=== PATIENT | female | born 1930 | race Caucasian/White ===

== ENCOUNTER 2016-11-21 16:27 | Inpatient (IN) | payer OTHER, BC ==
[~2016-11-21] VITALS: Ht 170.2 cm; Wt 62.7 kg
[~2016-11-21 16:27] MED LIST: ACETAMINOPHEN325 M3 PO; ASPIR 8181 M1 PO; ASPIR-LOW81 MG PO; CALCIUM 600 +1 EAC2 PO; CARVEDILOL12.5 MG PO; CEFTIN500 MG PO; CENTRAL VITE F1 EACH PO; CENTRUM SILVER1 EAC3 PO; CERTAVITE SR W1 EACH PO; CIPROFLOXACIN500 M1 PO; COLACE50 MG PO; COREG12.5 M1 PO; COUMADIN1 MG PO; COUMADIN3 MG PO; DOCU LIQUI50 MG/5 ML PO; DULCOLAX10 MG PR; ENALAPRIL MALEA10 MG PO; FUROSEMIDE40 MG PO; IRON325 MG PO; KLOR-CON 1010 ME1 PO; KLOR-CON M2020 MEQ PO; KLOR-CON20 MEQ PO; LASIX20 MG PO; LEVOTHYROXINE112 MCG PO; LEVOTHYROXINE88 MCG PO; LIDOCAINE700 MG TD; MILK OF MAGNESI10 ML PO; POTASSIUM CHLO20 ME1 PO; PRAVASTATIN SOD40 MG PO; SYNTHROID112 MCG PO; TRAMADOL HCL50 MG PO; VASOTEC10 MG PO; WARFARIN SODIUM1 MG PO; WARFARIN SODIUM2 MG PO; WARFARIN SODIUM3 MG PO; WARFARIN SODIUM4 MG PO; ZYLOPRIM100 MG PO
[2016-11-21 17:47] LABS: CHLORIDE 102 mEq/L (99-109); MAGNESIUM 2.5 mg/dL (1.3-2.7); POTASSIUM 4.6 mEq/L (3.7-5.4); SODIUM 141 mEq/L (136-147)
[2016-11-21 17:49] LABS: GLUCOSE 128 mg/dL (70-99)
[2016-11-21 17:50] LABS: ANION GAP 14 MEQ/L (2-14); EOSINOPHIL (%) 0 % (0-5); IMMATURE GRANULOCYTE (%) 0.6 % (0.0-0.7); IMMATURE GRANULOCYTE COUNT 0.1 K/uL; MCH 31.3 PG (29.0-34.0); MCHC 32.5 G/DL (30.0-36.0); MCV 96.4 FL (83-99); MONOCYTE (%) 10.1 % (3-12); MONOCYTE COUNT 1.6 K/uL (0-0.8); NEUTROPHIL (%) 82.5 % (45-76); PLATELET COUNT 186 K/uL (156-360); RBC DIS.WIDTH-CV 14.3 % (11.8-14.6); RBC DIS.WIDTH-SD 50.2 % (39-53); RED BLOOD COUNT 4.15 M/uL (3.80-5.20); WHITE BLOOD COUNT 15.7 K/uL (4.1-10.2)
[2016-11-21 17:52] LABS: GFR ESTIMATE (CALCULATED) 30 mL/min/
[2016-11-21 17:53] LABS: UREA NITROGEN (BUN) 43 mg/dL (9-23)
[2016-11-21 18:01] LABS: TROP-I INTERPRETATION NEGATIVE; TROPONIN-I 0.13 ng/mL (0.0-0.30)
[2016-11-21 18:33] LABS: PTT 35.8 SEC (25-37)
[2016-11-21 18:44] LABS: INTER. NORMALIZED RATIO 7.1; PROTHROMBIN TIME 84.5 SEC (10.2-12.9)
[2016-11-21 18:46] LABS: ADD MIUA? YES; BILIRUBIN NEGATIVE; BLOOD LARGE; COLOR YELLOW ((YELLOW)); GLUCOSE (STRIP) NEGATIVE; KETONES NEGATIVE; LEUKOCYTES LARGE; NITRITE POSITIVE; PROTEIN (STRIP) 30; SPECIFIC GRAVITY 1.012 (1.000-1.030); UROBILINOGEN 0.2 MG/DL (0.2-1.0)
[2016-11-21 18:56] LABS: BACTERIA RARE /HPF; CALCIUM OXALATE CRYSTALS 3+ /HPF; EPITHELIAL CELLS RARE /HPF; HYALINE CASTS 0-5 /LPF; MUCUS TRACE /LPF; RED BLOOD CELLS 15-20 /HPF (0-5); UCUL ADDED? YES; WHITE BLOOD CELLS TNTC /HPF (0-5)
[2016-11-21] MEDS ORDERED: CERTAVITE SR W1 EACH PO (21:09)
[2016-11-21] MEDS ORDERED: COUMADIN2.5 MG PO (21:17)
[2016-11-21 22:28] VITALS: BP 124/60
[2016-11-22 03:59] VITALS: BP 121/62
[2016-11-22 06:47] LABS: EOSINOPHIL (%) 0 % (0-5); HEMATOCRIT 37.3 % (36.0-46.0); IMMATURE GRANULOCYTE (%) 0.6 % (0.0-0.7); IMMATURE GRANULOCYTE COUNT 0.1 K/uL; INSTRUMENT ABS NEUTROPHIL CT 8.6 K/uL; LYMPHOCYTE COUNT 0.9 K/uL (1.0-2.8); MCH 30.5 PG (29.0-34.0); MCHC 31.6 G/DL (30.0-36.0); MCV 96.4 FL (83-99); MEAN PLAT.VOLUME 10.8 uM^3 (9.5-12.4); MONOCYTE (%) 10.2 % (3-12); MONOCYTE COUNT 1.1 K/uL (0-0.8); NEUTROPHIL (%) 80.5 % (45-76); NEUTROPHIL COUNT 8.6 K/uL (1.8-6.4); PLATELET COUNT 163 K/uL (156-360); RBC DIS.WIDTH-CV 14.4 % (11.8-14.6); RBC DIS.WIDTH-SD 50.3 % (39-53); RED BLOOD COUNT 3.87 M/uL (3.80-5.20); WHITE BLOOD COUNT 10.7 K/uL (4.1-10.2)
[2016-11-22 07:11] LABS: ANION GAP 10 MEQ/L (2-14); CHLORIDE 105 MEQ/L (99-109); GFR ESTIMATE (CALCULATED) 38 mL/min/; GLUCOSE 118 mg/dL (70-99); POTASSIUM 4.3 MEQ/L (3.7-5.4); SAMPLE HEMOLYSIS CHECK 0; SAMPLE ICTERIC CHECK 0; SAMPLE LIPEMIA CHECK 0; SODIUM 142 MEQ/L (136-147); UREA NITROGEN (BUN) 39 mg/dL (9-23)
[2016-11-22 07:58] VITALS: BP 130/62
[2016-11-22 11:00] LABS: INTER. NORMALIZED RATIO 5.5; PROTHROMBIN TIME 64.5 SEC (10.2-12.9)
[2016-11-22 11:40] VITALS: BP 110/66
[2016-11-22 16:00] VITALS: BP 132/70
[2016-11-22 19:39] VITALS: BP 112/53
[2016-11-22 23:22] VITALS: BP 136/65
[2016-11-23 03:36] VITALS: BP 110/54
[2016-11-23 08:28] LABS: EOSINOPHIL (%) 0.1 % (0-5); HEMATOCRIT 35.8 % (36.0-46.0); IMMATURE GRANULOCYTE (%) 0.5 % (0.0-0.7); INSTRUMENT ABS NEUTROPHIL CT 5.9 K/uL; LYMPHOCYTE COUNT 1.1 K/uL (1.0-2.8); MCH 30.8 PG (29.0-34.0); MCHC 31.3 G/DL (30.0-36.0); MCV 98.4 FL (83-99); MEAN PLAT.VOLUME 10.8 uM^3 (9.5-12.4); MONOCYTE (%) 13.5 % (3-12); MONOCYTE COUNT 1.1 K/uL (0-0.8); NEUTROPHIL (%) 72.1 % (45-76); NEUTROPHIL COUNT 5.9 K/uL (1.8-6.4); PLATELET COUNT 136 K/uL (156-360); RBC DIS.WIDTH-CV 14.3 % (11.8-14.6); RBC DIS.WIDTH-SD 52.3 % (39-53); RED BLOOD COUNT 3.64 M/uL (3.80-5.20); WHITE BLOOD COUNT 8.2 K/uL (4.1-10.2)
[2016-11-23 08:52] LABS: ANION GAP 9 MEQ/L (2-14); CHLORIDE 112 MEQ/L (99-109); GFR ESTIMATE (CALCULATED) 41 mL/min/; GLUCOSE 96 mg/dL (70-99); POTASSIUM 4.1 MEQ/L (3.7-5.4); SAMPLE HEMOLYSIS CHECK 0; SAMPLE ICTERIC CHECK 0; SAMPLE LIPEMIA CHECK 0; SODIUM 144 MEQ/L (136-147); UREA NITROGEN (BUN) 35 mg/dL (9-23)
[2016-11-23 09:03] LABS: INTER. NORMALIZED RATIO 4.4
[2016-11-23 09:20] LABS: PROTHROMBIN TIME 51.1 SEC (10.2-12.9)
[2016-11-23 11:12] VITALS: BP 124/66
[2016-11-23 16:48] VITALS: BP 136/76
[2016-11-23 19:33] VITALS: BP 153/64
[2016-11-24 00:48] VITALS: BP 157/69
[2016-11-24 04:36] VITALS: BP 149/67
[2016-11-24 06:02] LABS: INTER. NORMALIZED RATIO 3.3
[2016-11-24 06:12] LABS: PROTHROMBIN TIME 38.4 SEC (10.2-12.9)
[2016-11-24 13:11] VITALS: BP 140/78
[2016-11-24 20:00] VITALS: BP 130/70
[2016-11-25] VITALS (7 sets, daily range): BP systolic 126–154; BP diastolic 51–65
[2016-11-25 06:52] LABS: INTER. NORMALIZED RATIO 2.9; PROTHROMBIN TIME 33.4 SEC (10.2-12.9)
[2016-11-26 03:38] VITALS: BP 140/64
[2016-11-26 06:41] LABS: INTER. NORMALIZED RATIO 2.9; PROTHROMBIN TIME 33.3 SEC (10.2-12.9)
[2016-11-26 07:27] VITALS: BP 137/67
[2016-11-26 11:34] LABS: HEMATOCRIT 36.2 % (36.0-46.0); MCHC 32.9 G/DL (30.0-36.0); MCV 97.3 FL (83-99); MEAN PLAT.VOLUME 10.9 uM^3 (9.5-12.4); PLATELET COUNT 159 K/uL (156-360); RBC DIS.WIDTH-CV 14.1 % (11.8-14.6); RBC DIS.WIDTH-SD 50.3 % (39-53); RED BLOOD COUNT 3.72 M/uL (3.80-5.20); WHITE BLOOD COUNT 7.3 K/uL (4.1-10.2)
[2016-11-26 11:57] VITALS: BP 135/62
[2016-11-26 12:15] LABS: ANION GAP 8 MEQ/L (2-14); CHLORIDE 111 MEQ/L (99-109); GFR ESTIMATE (CALCULATED) 56 mL/min/; GLUCOSE 96 mg/dL (70-99); SAMPLE HEMOLYSIS CHECK 2; SAMPLE ICTERIC CHECK 0; SAMPLE LIPEMIA CHECK 0; SODIUM 143 MEQ/L (136-147); UREA NITROGEN (BUN) 35 mg/dL (9-23)
[2016-11-26 12:16] LABS: POTASSIUM 5.6 MEQ/L (3.7-5.4)
[2016-11-26 14:44] LABS: ALKALINE PHOSPHATASE 39 IU/L (3-129); MAGNESIUM 2.2 mg/dl (1.3-2.7)
[2016-11-26 16:16] VITALS: BP 134/65
[2016-11-26 19:42] VITALS: BP 165/70
[2016-11-27 00:04] VITALS: BP 165/72
[2016-11-27 04:03] VITALS: BP 146/65
[2016-11-27 06:53] LABS: PROTHROMBIN TIME 34.2 SEC (10.2-12.9)
[2016-11-27 07:08] VITALS: BP 148/69
[2016-11-27 11:38] VITALS: BP 136/68
== END 2016-11-27 13:52 | DRG 871 ==
LOC: EME 16:27 → EDOF 20:42 → 5SOUTH 20:42 → ENRESERV 20:48 → 5SOUTH 22:08
PROVIDERS: Emergency Medicine; Hospitalist; Internal Medicine
DX: R78.81 Bacteremia (principal); N30.00 Acute cystitis without hematuria; B96.20 Unspecified Escherichia coli [E. coli] as the cause of diseases classified elsewhere; Z16.12 Extended spectrum beta lactamase (ESBL) resistance; G93.40 Encephalopathy, unspecified; R79.1 Abnormal coagulation profile; J41.1 Mucopurulent chronic bronchitis; J43.9 Emphysema, unspecified; R47.81 Slurred speech; I11.0 Hypertensive heart disease with heart failure; I50.22 Chronic systolic (congestive) heart failure; I25.5 Ischemic cardiomyopathy; I42.0 Dilated cardiomyopathy; I48.2 Chronic atrial fibrillation; E03.9 Hypothyroidism, unspecified; E78.5 Hyperlipidemia, unspecified; F03.90 Unspecified dementia, unspecified severity, without behavioral disturbance, psychotic disturbance, mood disturbance, and anxiety; M10.9 Gout, unspecified; R19.7 Diarrhea, unspecified; I25.2 Old myocardial infarction; Z95.0 Presence of cardiac pacemaker; Z66 Do not resuscitate; Z87.891 Personal history of nicotine dependence; Z79.01 Long term (current) use of anticoagulants; Z94.7 Corneal transplant status
CPT/HCPCS: 70450; 71010; 80048; 81003; 83605; 83735; 84075; 84484; 84999; 85025; 85027; 85610; 85730; 87040; 87077; 87086; 87186; 87801; 93005; 97530 GO; 97530 GP; 99281; 99284; C1753; J0696; J1335; J7030; J7050

== ENCOUNTER 2017-02-26 03:26 | Observation (INO) | payer OTHER, BC ==
[~2017-02-26] VITALS: Ht 172.7 cm; Wt 64.9 kg
[~2017-02-26 03:26] MED LIST changes: +COUMADIN2.5 MG PO
[2017-02-26 03:49] LABS: BASOPHIL (%) 0.4 % (0-1); EOSINOPHIL (%) 1.8 % (0-5); EOSINOPHIL COUNT 0.2 K/uL (0-0.3); HEMATOCRIT 34.9 % (36.0-46.0); HEMOGLOBIN 11.1 G/DL (11.9-15.5); IMMATURE GRANULOCYTE (%) 0.4 % (0.0-0.7); LYMPHOCYTE (%) 11.7 % (15-42); LYMPHOCYTE COUNT 1.2 K/uL (1.0-2.8); MCH 31.4 PG (29.0-34.0); MCHC 31.8 G/DL (30.0-36.0); MCV 98.6 FL (83-99); MONOCYTE COUNT 0.7 K/uL (0-0.8); NEUTROPHIL (%) 78.7 % (45-76); NEUTROPHIL COUNT 7.9 K/uL (1.8-6.4); PLATELET COUNT 181 K/uL (156-360); RBC DIS.WIDTH-CV 14.6 % (11.8-14.6); RBC DIS.WIDTH-SD 53.7 % (39-53); RED BLOOD COUNT 3.54 M/uL (3.80-5.20); WHITE BLOOD COUNT 10.1 K/uL (4.1-10.2)
[2017-02-26 03:54] LABS: INTER. NORMALIZED RATIO 2.3
[2017-02-26 03:57] LABS: PTT 28.1 SEC (25-37)
[2017-02-26 03:58] LABS: CHLORIDE 109 mEq/L (99-109); POTASSIUM 4.1 mEq/L (3.7-5.4); SODIUM 142 mEq/L (136-147)
[2017-02-26 03:59] LABS: MAGNESIUM 1.9 mg/dL (1.3-2.7)
[2017-02-26 04:00] LABS: GLUCOSE 105 mg/dL (70-99)
[2017-02-26 04:04] LABS: CREATININE 1.5 mg/dL (0.6-1.3); GFR ESTIMATE (CALCULATED) 35 mL/min/; UREA NITROGEN (BUN) 38 mg/dL (9-23)
[2017-02-26 04:10] LABS: TROP-I INTERPRETATION NEGATIVE; TROPONIN-I 0.09 ng/mL (0.0-0.30)
[2017-02-26 10:44] LABS: TROP-I INTERPRETATION NEGATIVE
[2017-02-26 15:24] VITALS: BP 167/104
[2017-02-26 16:14] LABS: TROP-I INTERPRETATION NEGATIVE; TROPONIN-I 0.13 ng/mL (0.0-0.30)
[2017-02-26] MEDS ORDERED: FUROSEMIDE40 MG PO (16:22)
[2017-02-26] MEDS ORDERED: LASIX40 MG PO (16:23)
[2017-02-26] MEDS ORDERED: ULTRAM50 MG PO (16:24)
[2017-02-26] MEDS ORDERED: COREG12.5 M1 PO (16:24)
[2017-02-26] MEDS ORDERED: SYNTHROID100 MCG PO (16:25)
[2017-02-26] MEDS ORDERED: VASOTEC10 MG PO (16:25)
[2017-02-26] MEDS ORDERED: COUMADIN2 MG PO (16:26)
[2017-02-26] MEDS ORDERED: MACROBID100 MG PO (16:27)
[2017-02-26] MEDS ORDERED: PROBIOTIC1 EAC1 PO (16:28)
[2017-02-26] MEDS ORDERED: ACETAMINOPHEN325 M1 PO (16:29)
[2017-02-26] MEDS ORDERED: IMODIUM A-D2 M2 PO (16:30)
[2017-02-26 20:00] VITALS: BP 168/76
[2017-02-27 00:08] VITALS: BP 154/68
[2017-02-27 03:32] VITALS: BP 143/66
[2017-02-27 05:52] LABS: CHLORIDE 107 MEQ/L (99-109); CREATININE 1.3 MG/DL (0.6-1.3); GFR ESTIMATE (CALCULATED) 41 mL/min/; GLUCOSE 86 mg/dL (70-99); POTASSIUM 3.7 MEQ/L (3.7-5.4); SODIUM 144 MEQ/L (136-147); UREA NITROGEN (BUN) 33 mg/dL (9-23)
[2017-02-27 06:03] LABS: INTER. NORMALIZED RATIO 2.3
[2017-02-27 07:32] VITALS: BP 164/72
[2017-02-27 12:07] VITALS: BP 149/87
[2017-02-27 15:02] VITALS: BP 137/84
== END 2017-02-27 16:25 ==
LOC: EME 03:26 → EXP 03:26 → EDOF 05:35 → 5WEST 05:35 → ENRESERV 05:44 → EDOF 06:41 → ENRESERV 12:44 → 5WEST 15:12
PROVIDERS: Emergency Medicine; Internal Medicine
DX: J96.01 Acute respiratory failure with hypoxia (principal); I13.0 Hypertensive heart and chronic kidney disease with heart failure and stage 1 through stage 4 chronic kidney disease, or unspecified chronic kidney disease; I50.20 Unspecified systolic (congestive) heart failure; N18.3 Chronic kidney disease, stage 3 (moderate); J44.1 Chronic obstructive pulmonary disease with (acute) exacerbation; I48.0 Paroxysmal atrial fibrillation; Z79.01 Long term (current) use of anticoagulants; G20 Parkinson's disease; E03.9 Hypothyroidism, unspecified; I42.9 Cardiomyopathy, unspecified; Z95.810 Presence of automatic (implantable) cardiac defibrillator; Z98.890 Other specified postprocedural states; Z94.7 Corneal transplant status; Z88.5 Allergy status to narcotic agent; Z88.8 Allergy status to other drugs, medicaments and biological substances; Z87.891 Personal history of nicotine dependence
CPT/HCPCS: 71045; 80048; 83735; 83880; 84484; 85025; 85610; 85730; 93005; 94640; 99281; 99285; G0378; J1940; J7644

== ENCOUNTER 2017-04-11 11:40 | Emergency (ER) | payer OTHER, BC ==
[~2017-04-11] VITALS: Ht 172.7 cm; Wt 62.0 kg
[~2017-04-11 11:40] MED LIST changes: +ACETAMINOPHEN325 M1 PO; +COUMADIN2 MG PO; +IMODIUM A-D2 M2 PO; +LASIX40 MG PO; +MACROBID100 MG PO; +PROBIOTIC1 EAC1 PO; +SYNTHROID100 MCG PO; +ULTRAM50 MG PO
[2017-04-11 17:25] VITALS: BP 102/49
== END 2017-04-11 17:00 | disposition home or self-care (01) ==
LOC: EME 11:40
PROC: 0HQ0XZZ Repair Scalp Skin, External Approach (ICD-10-PCS; principal; 2017-04-11)
DX: S01.01XA Laceration without foreign body of scalp, initial encounter (principal); S50.02XA Contusion of left elbow, initial encounter; Z79.01 Long term (current) use of anticoagulants; W01.0XXA Fall on same level from slipping, tripping and stumbling without subsequent striking against object, initial encounter; Y93.89 Activity, other specified; G20 Parkinson's disease; I13.0 Hypertensive heart and chronic kidney disease with heart failure and stage 1 through stage 4 chronic kidney disease, or unspecified chronic kidney disease; I50.9 Heart failure, unspecified; N18.9 Chronic kidney disease, unspecified; J44.9 Chronic obstructive pulmonary disease, unspecified; E78.5 Hyperlipidemia, unspecified; E03.9 Hypothyroidism, unspecified; I25.2 Old myocardial infarction; F41.9 Anxiety disorder, unspecified; Z95.810 Presence of automatic (implantable) cardiac defibrillator; Z90.49 Acquired absence of other specified parts of digestive tract; Z87.891 Personal history of nicotine dependence; Z88.5 Allergy status to narcotic agent; Z88.8 Allergy status to other drugs, medicaments and biological substances
CPT/HCPCS: 70450; 93005; 99281; 99285